=== PATIENT | male | born 1945 | race Caucasian/White ===

== ENCOUNTER 2017-02-28 18:48 | Emergency (ER) | payer MEDICARE, OTHER ==
[~2017-02-28] VITALS: Ht 182.9 cm; Wt 122.2 kg
[~2017-02-28 18:48] MED LIST: B-1210005 PO; COZA100T PO; FLOV50AE; HYDR-2768 PO; VENL75TA91 PO; VIAG100T PO
[2017-02-28 18:59] VITALS: BP 145/87; PULSE 69; RESP 18; TEMP 98.4; O2SAT 93
[2017-02-28] MEDS ORDERED: CARB50TA3 PO (19:25)
[2017-02-28] MEDS ORDERED: ATOR20TA15 PO (19:25)
[2017-02-28] MEDS ORDERED: CHOL100025 CHEW (19:25)
[2017-02-28] MEDS ORDERED: ASPI-516 CHEW (19:25)
[2017-02-28] MEDS ORDERED: CETI10CH CHEW (19:25)
[2017-02-28] MEDS ORDERED: FLUT50SP EACH NARE (19:25)
[2017-02-28] MEDS ORDERED: OMEGCAP PO (19:25)
--- NOTE | 2017-02-28 19:36 | PD ---
HPI Chief Complaint: Head Injury Time Seen by Provider: 19:19 Travel History International Travel<30 days: No Contact w/Intl Traveler<30days: No History of Present Illness HPI 71yo M with PMH or Parkinson's disease presents to the ED with abrasion to left scalp after trip and fall about 1.5 hours ago. Said he was in the garage and tripped over the bicycle and fell and hit his head on the tool box. Think he may have passed out for 5 seconds. Pt also with right hand pain in 3rd and 4th digit. Denies any focal weakness or numbness. Denies any fever, dizziness, chest pain, sob, n/v, abdominal pain. Pt is on aspirin 81mg PO. Denies any anticoagulations. Not up to date on tetanus. PFSH Past Medical History Arthritis: Yes Depression: Yes Diabetes: No Diminished Hearing: Yes (mild loss both ears) Hypertension: Yes Psychiatric: Yes (depression and ptsd) Past Surgical History Thoracic Surgery: Yes (Thoracentesis for collapes lung) Social History Alcohol Use: Yes ("about a beer a year") Tobacco Use: No Substance Use: No Allergies-Medications (Allergen,Severity, Reaction): Coded Allergies: grass pollen (Unverified Allergy, Unknown, 12/18/16) Reported Meds & Prescriptions Reported Meds & Active Scripts Active Reported Vitamin D3 (Cholecalciferol) 1,000 Unit Chew 1,000 Units CHEW DAILY Carbidopa-Levodopa ER 50-200 Mg Tab 1 Tab PO TID Fluticasone Nasal [place] 50 Mcg/Act Naspr 50 Mcg EACH NARE BID 50 mcg/spray Cetirizine (Cetirizine HCl) 10 Mg Chew 10 Mg CHEW DAILY Atorvastatin (Atorvastatin Calcium) 20 Mg Tab 20 Mg PO HS [place]-3 Fish Oil/Vitamin (Fish Oil-Cholecalciferol) 1,000-1,000 Mg Cap 1 Cap PO DAILY Aspirin 81 Mg Chew 81 Mg CHEW DAILY Review of Systems Except as stated in HPI: all other systems reviewed are Neg Physical Exam Narrative GENERAL: 71yo M in mild distress. SKIN: Focused skin assessment warm/dry. HEAD: +3cm by 3cm abrasion in left parietal scalp. No lacerations. EYES: Pupils equal and round at 3mm bilaterally. No periorbital ecchymoses. EOMI. ENT: No septal hematoma. No hemotympanum. NECK: No midline cervical spine ttp. CARDIOVASCULAR: Regular rate and rhythm. No murmur appreciated. RESPIRATORY: No accessory muscle use. Clear to auscultation. Breath sounds equal bilaterally. GASTROINTESTINAL: Abdomen soft, non-tender, nondistended. BACK: No midline thoracic or lumbar ttp. No step off. MUSCULOSKELETAL: Right hand: +Small abrasion base of 4th PIP. +TTP 3rd IP and 4th IP. Sensation intact. FROM in all digits. Radial pulse 2+. NEUROLOGICAL: Awake and alert. No obvious cranial nerve deficits. Motor grossly within normal limits. Normal speech. Sensation intact. PSYCHIATRIC: Appropriate mood and affect; insight and judgment normal. Data Data Last Documented VS Vital Signs Date Time Temp Pulse Resp B/P (MAP) Pulse Ox O2 Delivery O2 Flow Rate FiO2 02/28/17 19:46 20 98 02/28/17 18:59 98.4 69 145/87 (106) Orders Orders Ct Brain W/O Iv Contrast(Rout) (02/28/17 ) Ct Cerv Spine W/O Contrast (02/28/17 ) Hand, Limited (2vws) (02/28/17 ) Tetanus/Diphtheria Tox Adult (Tetanus/Di (02/28/17 19:45) Acetaminophen (Tylenol) (02/28/17 21:00) Bacitracin Oint (Baciguent Oint) (02/28/17 22:00) MDM Medical Decision Making Medical Screen Exam Complete: Yes Emergency Medical Condition: Yes Interpretation(s) Last Impressions Head CT 02/28/17 0000 Signed Impressions: Service Date/Time: February 20:06 - CONCLUSION: No acute intracranial injury Sunny Chapa MD Hand X-Ray 02/28/17 0000 Signed Impressions: Service Date/Time: February 19:46 - CONCLUSION: Unremarkable limited examination of the right hand. Sunny Chapa MD Cervical Spine CT 02/28/17 0000 Signed Impressions: Service Date/Time: February 20:06 - CONCLUSION: Arthritic changes. No acute bony injury in the cervical spine. Sunny Chapa MD Differential Diagnosis ICH vs. fracture vs. abrasion Narrative Course 71yo M with left parietal scalp abrasion s/p mechanical fall today. Pt is not complaining of anything except mild pain where the abrasion is and mild right hand pain. CT cervical spine showed no acute bony injury in cervical spine. Xray right hand unremarkable. CT brain negative. Pt given acetaminophen which improved pain. Abrasion cleaned and it is about 3cm by 3cm of skin that came off and there is no laceration to suture. Bacitracin applied and pt advised to keep area clean. Tetanus updated. Pt observed in the ED for almost 3 hours with no symptoms. GCS 15. Return precautions given. Diagnosis Primary Impression: Head injury Qualified Codes: S09.90XA - Unspecified injury of head, initial encounter Patient Instructions: General Instructions Departure Forms: Tests/Procedures Additional Instructions: Please follow up with your primary care physician in 2-3 days. Return to the ED if symptoms worsen. Med/Other Pt SpecificInfo: Prescription(s) given Scripts Acetaminophen (Tylenol) 325 Mg Tab 325 MG PO Q4H Y for PAIN SCALE 1 TO 4, #20 TAB 0 Refills Prov: Paulette Burch DO 02/28/17 Disposition: 01 DISCHARGE HOME Condition: Stable Paulette Burch DO Feb 28, 2017 19:36
[2017-02-28] MEDS ORDERED: TETANUS/DIPHTHERIA TOXOID ADULT 0.5 ML VIAL IM ONE (19:45)
--- NOTE | 2017-02-28 20:22 | RADRPT ---
EXAM DATE/TIME: 02/28/2017 19:46 [facility] COMPARISON: No previous studies available for comparison. INDICATIONS : Patient fell and landed on hand. MEDICAL HISTORY : None. SURGICAL HISTORY : None. ENCOUNTER: Initial ACUITY: 1 day PAIN SCORE: 6/10 LOCATION: Right 4th digit FINDINGS: Two view examination of the right hand demonstrates no soft tissue swelling, dislocation, or fracture . The joint spaces are maintained. Bony mineralization is normal. CONCLUSION: Unremarkable limited examination of the right hand. Sunny Chapa MD on February 28, 2017 at 20:18 Board Certified Radiologist. This report was verified electronically.
[2017-02-28] MEDS ORDERED: ACETAMINOPHEN 325 MG TAB PO ONE (21:00)
--- NOTE | 2017-02-28 21:25 | RADRPT ---
EXAM DATE/TIME: 02/28/2017 20:06 [facility] COMPARISON: No previous studies available for comparison. INDICATIONS : Trauma, fall today. Laceration to left side of head. RADIATION DOSE: 68.12 CTDIvol (mGy) MEDICAL HISTORY : Parkinson's. Hypertension. SURGICAL HISTORY : Fusion, cervical. ENCOUNTER: Initial ACUITY: 1 day PAIN SCALE: 8/10 LOCATION: Bilateral head TECHNIQUE: Multiple contiguous axial images were obtained of the head. Using automated exposure control and adj ustment of the mA and/or kV according to patient size, radiation dose was kept as low as reasonably a chievable to obtain optimal diagnostic quality images. DICOM format image data is available electro nically for review and comparison. FINDINGS: CEREBRUM: The ventricles are normal for age. No evidence of midline shift, mass lesion, hemorrhage or acute in farction. No extra-axial fluid collections are seen. POSTERIOR FOSSA: The cerebellum and brainstem are intact. The 4th ventricle is midline. The cerebellopontine angle i s unremarkable. EXTRACRANIAL: The visualized portion of the orbits is intact. SKULL: The calvaria is intact. No evidence of skull fracture. CONCLUSION: No acute intracranial injury Sunny Chapa MD on February 28, 2017 at 21:20 Board Certified Radiologist. This report was verified electronically.
--- NOTE | 2017-02-28 21:48 | RADRPT ---
EXAM DATE/TIME: 02/28/2017 20:06 [facility] COMPARISON: No previous studies available for comparison. INDICATIONS : Trauma, fall today. Laceration to left side of head. RADIATION DOSE: 26.54 CTDIvol (mGy) MEDICAL HISTORY : Parkinson's. Hypertension. SURGICAL HISTORY : Fusion, cervical. ENCOUNTER: Initial ACUITY: 1 day PAIN SCALE: 2/10 LOCATION: Bilateral neck TECHNIQUE: Volumetric scanning of the cervical spine was performed. Multiplanar reconstructions in the sagittal, coronal and oblique axial planes were performed. Using automated exposure control and adjustment o f the mA and/or kV according to patient size, radiation dose was kept as low as reasonably achievable to obtain optimal diagnostic quality images. DICOM format image data is available electronically f or review and comparison. FINDINGS: Cervical spine alignment is satisfactory. There has been previous ventral hardware fusion at C3-4 whi ch appears solid. There is no evidence of fracture. Degenerative changes are present with small endpl ate osteophytes most notably at C4-5 and C5-6. There is no significant bony canal compromise. There i s moderate to moderately severe arthritic change in the posterior facet joints, most significant on t he left at C4-5. There is no evidence of paraspinal hematoma. CONCLUSION: Arthritic changes. No acute bony injury in the cervical spine. Sunny Chapa MD on February 28, 2017 at 21:44 Board Certified Radiologist. This report was verified electronically.
[2017-02-28] MEDS ORDERED: TYLE325T PO (21:58)
[2017-02-28] MEDS ORDERED: BACITRACIN TOP OINT 15 GM TUBE TOPICAL ONE (22:00)
[2017-02-28 22:12] VITALS: BP 140/64
== END 2017-02-28 22:14 | disposition home or self-care (01) ==
LOC: PHED 18:48
DX: S00.01XA Abrasion of scalp, initial encounter (principal); M79.641 Pain in right hand; W18.09XA Striking against other object with subsequent fall, initial encounter; Y92.008 Other place in unspecified non-institutional (private) residence as the place of occurrence of the external cause; Z23 Encounter for immunization
CPT/HCPCS: 70450; 72125; 73120; 90471; 90714